=== PATIENT | female | born 1960 | race African-American/Black ===

== ENCOUNTER 2019-10-16 06:35 | Day surgery (SDC) | payer MEDICARE, OTHER ==
[~2019-10-16] VITALS: Ht 149.9 cm; Wt 75.0 kg
[~2019-10-16 06:35] MED LIST: QUET100T PO; SODIUM CHLORIDE 0.9% 1,000 ML IV ONE; SODIUM CHLORIDE 0.9% 1,000 ML ONE; TRAZ-184 PO
[2019-10-16] MEDS ORDERED: LIDOCAINE 2% 30 ML JELLY TP ONE (06:36)
[2019-10-16] MEDS ORDERED: ALBUTEROL SULFATE 2.5 MG/0.5 ML NEB SOLUTION NEB ONE (06:36)
[2019-10-16] MEDS ORDERED: BENZOCAINE 20% 50 MCG/SPRAY 57 GM TP ONE (06:36)
[2019-10-16] MEDS ORDERED: LIDOCAINE 4% 50 ML SOLUTION TP ONE (06:36)
[2019-10-16] MEDS ORDERED: MULT-1259 PO (07:24)
[2019-10-16] MEDS ORDERED: GABA-529 PO (07:24)
[2019-10-16] MEDS ORDERED: METH750T4 PO (07:24)
[2019-10-16] MEDS ORDERED: OMEP20 PO (07:24)
[2019-10-16] MEDS ORDERED: MELA10TA2 PO (07:24)
[2019-10-16] MEDS ORDERED: SIMV-261 PO (07:24)
[2019-10-16] MEDS ORDERED: CALC-1220 PO (07:24)
[2019-10-16] MEDS ORDERED: MIDAZOLAM HCL 2 MG/2 ML VIAL ONE (07:49)
[2019-10-16] MEDS ORDERED: FentaNYL CITRATE-PF 100 MCG/2 ML VIAL ONE (07:49)
[2019-10-16] MEDS ORDERED: MethylPREDNISolone SOD SUCC 125 MG/2 ML VIAL IVP ONE (08:15)
[2019-10-16] MEDS ORDERED: MethylPREDNISolone SOD SUCC 125 MG/2 ML VIAL ONE (08:47)
[2019-10-16] MEDS ORDERED: OXYGEN THERAPY IH SCH (20:00)
== END 2019-10-16 10:06 | disposition home or self-care (01) ==
LOC: SURGERY 06:35
PROVIDERS: ATTEND Internal Medicine Critical Care Medicine
DX: R05 Cough (principal); R91.1 Solitary pulmonary nodule; J34.89 Other specified disorders of nose and nasal sinuses; J38.4 Edema of larynx; B37.0 Candidal stomatitis; J98.8 Other specified respiratory disorders; G47.33 Obstructive sleep apnea (adult) (pediatric); J44.9 Chronic obstructive pulmonary disease, unspecified
CPT/HCPCS: 31623; 31624; 71045; 87015; 87070; 87101; 87205; 87206; 87220; 88108; 88312; J2250; J2930; J3010; J7030

== ENCOUNTER → 2021-04-13 | Emergency (ER) | payer MEDICARE, OTHER ==
[~2021-04-13] MED LIST changes: +CALC-1220 PO; +GABA-1216 PO; +MELA10TA2 PO; +METH-661 PO; +MULT-1259 PO; +OMEP20 PO; -QUET100T PO; +SIMV-261 PO; -SODIUM CHLORIDE 0.9% 1,000 ML IV ONE; -SODIUM CHLORIDE 0.9% 1,000 ML ONE; -TRAZ-184 PO
== END | disposition home or self-care (01) ==
LOC: EMS 14:26
DX: M25.561 Pain in right knee (principal); M25.562 Pain in left knee; F20.9 Schizophrenia, unspecified; F32.9 Major depressive disorder, single episode, unspecified; F17.210 Nicotine dependence, cigarettes, uncomplicated; Z90.710 Acquired absence of both cervix and uterus; Z79.899 Other long term (current) drug therapy
CPT/HCPCS: 99283